=== PATIENT | male | born 1945 | race Caucasian/White ===

== ENCOUNTER 2017-10-10 07:13 | Day surgery (SDC) | payer MEDICARE, BC ==
[~2017-10-10 07:13] MED LIST: MIDAZOLAM 1 MG/ML 2 ML INJ IV; NACL 0.9% 3 ML SYG IV
[2017-10-10 08:03] LABS: ADD MAN DIFF? NO
[2017-10-10 08:04] LABS: WHITE BLOOD COUNT 5.8 10^3/ul (4.8-10.8)
[2017-10-10 08:04] LABS: BASOPHILS % 0.5 % (0.0-2.0); EOSINOPHILS # 0.2 10^3/ul (0.0-0.5); EOSINOPHILS % 3.3 % (0.0-7.0); HEMATOCRIT 39.2 % (42.0-52.0); HEMOGLOBIN 13.9 g/dl (14.0-18.0); LYMPHOCYTES # 1.4 10^3/ul (0.8-2.9); LYMPHOCYTES % 23.5 % (15.0-51.0); MEAN CORPUSCULAR HEMOGLOBIN 33.2 pg (29.0-33.0); MEAN CORPUSCULAR HGB CONC 35.5 g/dl (32.0-37.0); MEAN CORPUSCULAR VOLUME 93.6 fl (82.0-101.0); MEAN PLATELET VOLUME 9.4 fl (7.4-10.4); MONOCYTE # 0.6 10^3/ul (0.3-0.9); MONOCYTES % 10.9 % (0.0-11.0); NEUTROPHIL # 3.5 10^3/ul (1.6-7.5); NEUTROPHILS % 61.1 % (39.0-77.0); PLATELET COUNT 168 10^3/UL (140-415); RED BLOOD COUNT 4.19 10^6/ul (4.70-6.10); RED CELL DISTRIBUTION WIDTH 13.1 % (11.5-14.5)
[2017-10-10] MEDS: ASPIRIN 325 MG TAB PO (08:10)
[2017-10-10 08:25] LABS: ANION GAP 17 (8-16); CARBON DIOXIDE 23 mmol/L (21-31); CHLORIDE 103 mmol/L (97-110); GLUCOSE 152 mg/dl (70-220)
[2017-10-10 08:26] LABS: BLOOD UREA NITROGEN 17 mg/dl (7-20); CALCIUM 9.3 mg/dl (8.4-10.2); CREATININE 0.88 mg/dl (0.61-1.24); POTASSIUM 4.5 mmol/L (3.5-5.1); SODIUM 138 mmol/L (135-144)
[2017-10-10 08:27] LABS: INR 0.94; PROTIME 12.7 Sec (11.9-14.9)
[2017-10-10 08:28] LABS: PARTIAL THROMBOPLASTIN TIME 28.9 Sec (25.0-35.0)
[2017-10-10] MEDS ORDERED: LIDOCAINE 1% (MDV) 20 ML INJ (08:33)
[2017-10-10] MEDS ORDERED: IODIXANOL LOCM 100 ML BTL (08:38)
[2017-10-10] MEDS ORDERED: FENTAnyl 50 MCG/ML VIAL (08:39)
[2017-10-10] MEDS ORDERED: MIDAZOLAM 1 MG/ML 2 ML INJ (08:39)
[2017-10-10] MEDS ORDERED: HEPARIN 1000 UNITS/ML 10 ML INJ (08:40)
[2017-10-10] MEDS ORDERED: VERAPAMIL 5 MG INJ (08:40)
[2017-10-10] MEDS ORDERED: NITROGLYCERIN (IC) 100 MCG/ML INJ (08:41)
[2017-10-10] MEDS ORDERED: SOD CHLORIDE 0.9% 1,000 ML IV (09:59)
[2017-10-10] MEDS ORDERED: morphine 2 MG INJ IV (10:00)
[2017-10-10] MEDS ORDERED: ONDANSETRON 4 MG INJ IV (10:00)
[2017-10-10] MEDS ORDERED: ACETAMINOPHEN 325 MG TAB PO (10:00)
[2017-10-10] MEDS ORDERED: AL HYDROX/MG HYDROX/SIMETH 30 ML CUP PO (10:00)
== END 2017-10-10 13:55 | disposition home or self-care (01) ==
LOC: SDS 07:13
DX: I25.119 Atherosclerotic heart disease of native coronary artery with unspecified angina pectoris (principal); I10 Essential (primary) hypertension; E78.5 Hyperlipidemia, unspecified; E11.9 Type 2 diabetes mellitus without complications
CPT/HCPCS: 80048; 82962; 85025; 85610; 85730; 93005; 93458